=== PATIENT | female | born 1990 | race Caucasian/White ===

== ENCOUNTER → 2024-10-16 07:35 | Outpatient (REF) | payer OTHER, SELFPAY | LOC: PAVMRI 07:35 | PROVIDERS: ATTENDING PHYSICIAN Nurse Practitioner Adult Health; REFERRING PHYSICIAN Internal Medicine | DX: M79.7 Fibromyalgia (principal); Q79.60 Ehlers-Danlos syndrome, unspecified; M54.12 Radiculopathy, cervical region | CPT/HCPCS: 72156; A9575 ==